=== PATIENT | female | born 1965 | race Caucasian/White ===

== ENCOUNTER → 2017-04-04 | Outpatient (CLI) | payer MEDICARE, MEDICAID ==
[~2017-04-04] MED LIST: ALPR0.5T6 PO; GLIM2TAB2 PO; HYDR5SYR PO; INSU100I13 SQ; LINA5TAB PO; LISI-167 PO; LORA10TA3 PO; MELA1TAB8 PO; METF-650 PO; NITR100C56 PO; OMEP-110 PO; SUCR1TAB PO
[2017-04-04 16:23] LABS: HEMATOCRIT 48.8 % (34.6-47.8); HEMOGLOBIN 16.3 g/dL (11.7-16.4); WHITE BLOOD COUNT 12.5 x10^3/uL (3.4-10)
[2017-04-04 16:27] LABS: PATH.CAST-FLAG NOT PRESENT; SPERM-FLAG NOT PRESENT; SRC-FLAG NOT PRESENT; XTAL-FLAG NOT PRESENT; YLC-FLAG NOT PRESENT
[2017-04-04 16:37] LABS: BLOOD UREA NITROGEN 9 mg/dL (7-18)
[2017-04-04 16:42] LABS: ASPARTATE AMINO TRANSFERASE 14 U/L (15-37)
== END | disposition home or self-care (01) ==
LOC: STAR 15:15
PROVIDERS: ATTEND Neurological Surgery
DX: Z01.818 Encounter for other preprocedural examination (principal); R94.31 Abnormal electrocardiogram [ECG] [EKG]; I10 Essential (primary) hypertension; M47.892 Other spondylosis, cervical region; M48.02 Spinal stenosis, cervical region; M43.12 Spondylolisthesis, cervical region; M50.00 Cervical disc disorder with myelopathy, unspecified cervical region; Z87.891 Personal history of nicotine dependence
CPT/HCPCS: 36415; 71020; 72052; 80053; 81001; 84702; 84703; 85025; 85610; 85730; 87086; 93005

== ENCOUNTER 2017-04-20 05:55 | Inpatient (IN) | payer MEDICARE, MEDICAID ==
[2017-04-04 16:03] VITALS: BP 128/83
[~2017-04-20] VITALS: Ht 157.5 cm; Wt 72.4 kg
[2017-04-20] MEDS ORDERED: BUPIVACAINE/PF 0.5% ONE (06:07)
[2017-04-20] MEDS ORDERED: BACITRACIN 50,000 UNIT ONE (06:08)
[2017-04-20] MEDS ORDERED: THROMBIN 20,000 UNIT VIAL TP ONE (06:08)
[2017-04-20] MEDS ORDERED: EPINEPHRINE 1 MG/ML, 1ML ONE (06:10)
[2017-04-20] MEDS ORDERED: LIDOCAINE 1%, 2ML ONE (07:01)
[2017-04-20] MEDS ORDERED: FENTANYL PF 100 MCG/2ML ONE ×5 (07:05→10:46)
[2017-04-20] MEDS ORDERED: MIDAZOLAM 1 MG/ML, 2ML ONE ×2 (07:05→10:47)
[2017-04-20 07:09] LABS: HCG UR LOT HCG7030192
[2017-04-20 07:20] LABS: HCG UR OBC PASS
[2017-04-20] MEDS ORDERED: LACTATED RINGERS 1,000 ML IV SCH (07:24)
[2017-04-20] MEDS ORDERED: LIDOCAINE 1%, 2ML SQ PRN (07:30)
[2017-04-20] MEDS ORDERED: PROPOFOL 10 MG/ML, 20ML ONE ×4 (08:07→09:23)
[2017-04-20] MEDS ORDERED: DEXAMETHASONE 4 MG/ML, 1ML ONE (08:07)
[2017-04-20] MEDS ORDERED: SUCCINYLCHOLINE 20 MG/ML, 10ML ONE (08:07)
[2017-04-20] MEDS ORDERED: CEFAZOLIN 1,000 MG ONE (08:07)
[2017-04-20] MEDS ORDERED: ONDANSETRON 2MG/ML, 2ML ONE (08:07)
[2017-04-20] MEDS ORDERED: PHENYLEPHRINE 10 MG/ML ONE (08:09)
[2017-04-20] MEDS ORDERED: EPHEDRINE 50 MG/ML, 1ML ONE (08:09)
[2017-04-20] MEDS ORDERED: METOPROLOL 1 MG/ML, 5ML IV PRN (09:00)
[2017-04-20] MEDS ORDERED: PROMETHAZINE 25 MG/ML, 1ML IV PRN (09:00)
[2017-04-20] MEDS ORDERED: OXYcodone 5 MG/5 ML ORAL.SOL UDC PO PRN (09:00)
[2017-04-20] MEDS ORDERED: hydrALAzine 20 MG/ML, 1ML IV PRN (09:00)
[2017-04-20] MEDS ORDERED: ALBUTEROL SULFATE 2.5 MG/3 ML NPPB PRN (09:00)
[2017-04-20] MEDS ORDERED: MEPERIDINE/PF 25MG/0.5ML IVPush PRN (09:00)
[2017-04-20] MEDS ORDERED: ACETAMINOPHEN 325 MG TABLET PO PRN ×2 (09:00→20:30)
[2017-04-20] MEDS ORDERED: HYDROmorphone 1 MG/ML, 1ML ONE ×2 (09:21→10:35)
[2017-04-20] MEDS ORDERED: OXYcodone 5 MG/5 ML ORAL.SOL UDC ONE (10:35)
[2017-04-20] MEDS: HYDROmorphone 1 MG/ML, 1ML IV PRN ×2 (10:39→10:44)
[2017-04-20] MEDS: FENTANYL PF 100 MCG/2ML IV PRN ×2 (10:49→11:16)
[2017-04-20] MEDS: MIDAZOLAM 1 MG/ML, 2ML IV PRN ×2 (10:49→11:16)
[2017-04-20 12:27] VITALS: BP 118/76
[2017-04-20] MEDS ORDERED: morphine SULFATE 10 MG/ML, 1ML IV PRN (13:00)
[2017-04-20] MEDS ORDERED: PROMETHAZINE 25 MG/ML, 1ML IM PRN (13:00)
[2017-04-20] MEDS ORDERED: ONDANSETRON 2MG/ML, 2ML IV PRN ×2 (13:00→20:30)
[2017-04-20] MEDS ORDERED: LORATADINE 10 MG TABLET PO PRN (13:00)
[2017-04-20] MEDS ORDERED: DIPHENHYDRAMINE 50 MG/ML, 1ML IM PRN (13:00)
[2017-04-20] MEDS ORDERED: LABETALOL 5MG/ML, 20ML IV PRN (13:00)
[2017-04-20] MEDS ORDERED: BISACODYL 10 MG SUPP PR PRN (13:00)
[2017-04-20] MEDS ORDERED: MAGNESIUM HYDROXIDE 8%, 30ML UDC PO PRN (13:00)
[2017-04-20] MEDS ORDERED: DIPHENHYDRAMINE 50 MG CAPSULE PO PRN (13:00)
[2017-04-20] MEDS ORDERED: DIPHENHYDRAMINE 50 MG/ML, 1ML IVPush PRN (13:00)
[2017-04-20] MEDS ORDERED: HYDROcodone/APAP 10/325 MG TABLET PO PRN (13:00)
[2017-04-20] MEDS: NS + 20MEQ KCL 1,000 ML IV SCH ×2 (13:09→14:34)
[2017-04-20] MEDS: METHOCARBAMOL 750 MG TABLET PO PRN ×2 (13:26→21:55)
[2017-04-20 13:43] VITALS: BP 117/76
[2017-04-20] MEDS ORDERED: CLINDAMYCIN PMX 600MG/50ML 50 ML IV ONE (15:00)
[2017-04-20] MEDS ORDERED: GENTAMICIN 100 MG in SODIUM CHLORIDE 0.9% 50 ML IV ONE (15:00)
[2017-04-20] MEDS ORDERED: NICOTINE 14MG/24 HR PATCH.TD24 TD SCH (16:30)
[2017-04-20] MEDS: CEFAZOLIN PMX 1GM/50ML 50 ML IVPB SCH (17:23)
[2017-04-20] MEDS: INSULIN REGULAR 100 UNITS/ML, 3ML VIAL SQ-INSULIN SCH ×2 (17:29→21:00)
[2017-04-20 19:49] VITALS: BP 133/82
[2017-04-20] MEDS ORDERED: MELATONIN 5 MG TABLET PO SCH (21:00)
[2017-04-20] MEDS ORDERED: INSULIN DETEMIR 100 UNITS/ML, PEN SQ-INSULIN SCH (21:00)
[2017-04-20] MEDS ORDERED: ZOLPIDEM 5MG TABLET PO PRN (21:00)
[2017-04-20] MEDS ORDERED: LISINOPRIL 10 MG TABLET PO SCH (21:00)
[2017-04-20] MEDS: HYDROcodone/APAP 5/325 TABLET PO PRN (21:55)
[2017-04-20] MEDS: SENNA/DOCUSATE TABLET PO SCH (21:56)
[2017-04-20] MEDS: OMEPRAZOLE 20 MG CAPSULE.DR PO SCH (22:41)
[2017-04-20 23:35] VITALS: BP 118/74
[2017-04-21] MEDS: CEFAZOLIN PMX 1GM/50ML 50 ML IVPB SCH (00:36)
[2017-04-21] MEDS: NS + 20MEQ KCL 1,000 ML IV SCH ×2 (01:03)
[2017-04-21] MEDS: HYDROcodone/APAP 5/325 TABLET PO PRN (03:28)
[2017-04-21 03:36] VITALS: BP 113/79
[2017-04-21] MEDS: INSULIN REGULAR 100 UNITS/ML, 3ML VIAL SQ-INSULIN SCH (07:00)
[2017-04-21 07:27] VITALS: BP 119/90
[2017-04-21] MEDS ORDERED: OMEPRAZOLE 20 MG CAPSULE.DR PO SCH (07:30)
[2017-04-21] MEDS ORDERED: metFORMIN XR 500 MG TAB.ER.24H PO SCH (08:00)
[2017-04-21] MEDS: SENNA/DOCUSATE TABLET PO SCH (08:33)
[2017-04-21] MEDS: METHOCARBAMOL 750 MG TABLET PO PRN (08:46)
[2017-04-21] MEDS ORDERED: DEXAMETHASONE 4 MG/ML, 1ML IV ONE (09:00)
[2017-04-21] MEDS ORDERED: SUCRALFATE 1 GM TABLET PO SCH (09:00)
[2017-04-21] MEDS: OMEPRAZOLE 20 MG CAPSULE.DR PO SCH (09:00)
[2017-04-21] MEDS ORDERED: ONDA4TAB10 PO (10:00)
[2017-04-21] MEDS ORDERED: SENN1TAB7 PO (10:02)
[2017-04-21] MEDS ORDERED: CALC300T5 PO (10:03)
[2017-04-21] MEDS ORDERED: CHOL100011 PO (10:04)
[2017-04-21] MEDS ORDERED: METH750T2 PO (10:05)
[2017-04-21] MEDS ORDERED: HYDR-3240 PO (10:06)
[2017-04-21] MEDS ORDERED: METH4TAB2 PO (10:07)
[2017-04-21 10:44] VITALS: BP 123/81
== END 2017-04-21 11:07 | disposition home or self-care (01) | DRG 472 ==
LOC: ORIP 05:55 → 4NOR 12:05 → DCLOUNGE 04-21 10:50
PROVIDERS: ADMIT Neurological Surgery; ATTEND Neurological Surgery
PROC: 0RG20A0 Fusion of 2 or more Cervical Vertebral Joints with Interbody Fusion Device, Anterior Approach, Anterior Column, Open Approach (ICD-10-PCS; 2017-04-20)
PROC: 00NW0ZZ Release Cervical Spinal Cord, Open Approach (ICD-10-PCS; 2017-04-20)
PROC: 4A11X4G Monitoring of Peripheral Nervous Electrical Activity, Intraoperative, External Approach (ICD-10-PCS; 2017-04-20)
PROC: 0RB30ZZ Excision of Cervical Vertebral Disc, Open Approach (ICD-10-PCS; principal; 2017-04-20 07:30)
DX: M50.023 Cervical disc disorder at C6-C7 level with myelopathy (principal); G95.29 Other cord compression; I10 Essential (primary) hypertension; E11.9 Type 2 diabetes mellitus without complications; E78.00 Pure hypercholesterolemia, unspecified; M54.12 Radiculopathy, cervical region; M19.90 Unspecified osteoarthritis, unspecified site; Z82.49 Family history of ischemic heart disease and other diseases of the circulatory system; Z83.3 Family history of diabetes mellitus
CPT/HCPCS: 36415; 72040; 81025; 82962; 86850; 86900; C1713; J0171; J0690; J1100; J1170; J1815; J2250; J2405; J2704; J3010; J3480; J3490; J0330; J1580; J2370; J7120

== ENCOUNTER 2018-01-05 20:05 | Emergency (ER) | payer MEDICARE, MEDICAID ==
[~2018-01-05] VITALS: Ht 157.5 cm; Wt 74.0 kg
[~2018-01-05 20:05] MED LIST changes: +CALC300T5 PO; +CHOL100011 PO; +HYDR-3240 PO; +METH4TAB2 PO; +METH750T2 PO; +ONDA4TAB10 PO; +SENN1TAB7 PO
[2018-01-05 20:11] VITALS: BP 148/101
[2018-01-05] MEDS ORDERED: SODIUM CHLORIDE 0.9% 1,000ML IVBOLUS ONE (20:30)
[2018-01-05] MEDS ORDERED: SODIUM CHLORIDE FLUSH 10ML SYR IVF ONE (20:30)
[2018-01-05 20:31] LABS: BASOPHILS # (AUTO) 0.05 x10^3/uL (0-0.1); BASOPHILS % (AUTO) 0 % (0-1); EOSINOPHILS # (AUTO) 0.23 x10^3/uL (0-0.4); EOSINOPHILS % (AUTO) 2 % (1-7); LYMPHOCYTES # (AUTO) 2.57 x10^3/uL (1-3.4); LYMPHOCYTES % (AUTO) 19 % (22-44); MD NO; MEAN CORPUSCULAR HEMOGLOBIN 30.6 pg (27.0-34.8); MEAN CORPUSCULAR HGB CONC 33.5 g/dL (32.4-35.8); MEAN CORPUSCULAR VOLUME 91.3 fL (80-100); MEAN PLATELET VOLUME 8.1 fL (7.4-10.4); MONOCYTES # (AUTO) 0.87 x10^3/uL (0.2-0.8); MONOCYTES % (AUTO) 6 % (2-9); NEUTROPHILS # (AUTO) 10.07 x10^3/uL (1.8-6.8); NEUTROPHILS % (AUTO) 73 % (42-75); PLATELET COUNT 403 x10^3/uL (130-400); RED BLOOD COUNT 4.83 x10^6/uL (3.82-5.3); RED CELL DISTRIBUTION WIDTH 14.2 % (9.6-15.2)
[2018-01-05 20:40] LABS: INTERNATIONAL NORMALIZED RATIO 0.98 (0.93-1.1); PROTHROMBIN TIME 10.1 Seconds (9.6-11.5)
[2018-01-05 20:43] LABS: ALANINE AMINOTRANSFERASE 30 U/L (12-78); ALBUMIN 3.8 g/dL (3.4-5.0); ANION GAP 7 mmol/L (5-15); CALCIUM 9.6 mg/dL (8.5-10.1); CHLORIDE 100 mmol/L (98-107); CREATININE 0.82 mg/dL (0.55-1.02)
[2018-01-05 20:45] LABS: ALKALINE PHOSPHATASE 74 U/L (45-117); BILIRUBIN,TOTAL 0.2 mg/dL (0.2-1.0); TOTAL PROTEIN 8.1 g/dL (6.4-8.2)
[2018-01-05] MEDS ORDERED: HYDROmorphone 1 MG/ML, 1ML IVPush PRN (21:00)
[2018-01-05] MEDS ORDERED: ONDANSETRON ODT 4 MG PO ONE (21:00)
[2018-01-05] MEDS ORDERED: HYDROmorphone 2 MG/ML, 1ML ONE (21:01)
[2018-01-05] MEDS ORDERED: ONDANSETRON ODT 4 MG ONE (21:01)
[2018-01-05 21:48] LABS: MICROSCOPIC AUTO
[2018-01-05 22:02] LABS: CULTURE INDICATED? YES
[2018-01-05] MEDS ORDERED: OMNIPAQUE 350 MG/ML, 100ML BOTTLE ONE (23:39)
== END 2018-01-05 23:15 | disposition home or self-care (01) ==
LOC: ED 23:10
DX: R10.13 Epigastric pain (principal); R10.11 Right upper quadrant pain; R11.0 Nausea; E11.9 Type 2 diabetes mellitus without complications; M19.90 Unspecified osteoarthritis, unspecified site; Z88.8 Allergy status to other drugs, medicaments and biological substances
CPT/HCPCS: 36415; 74177; 80053; 81001; 83690; 85025; 85610; 85730; 87086; 96374; 99285; J1170; J7030; Q0162; Q9967